=== PATIENT | female | born 1960 | race Caucasian/White ===

== ENCOUNTER 2022-04-23 13:37 | Emergency (ER) | payer OTHER, SELFPAY ==
--- NOTE | ~2022-04-23 | XR_ITS ---
EXAM: XR shoulder LT min 2V DATE: 04/23/2022 14:06 HISTORY: fall, landed on shoulder, hx fracture/hardware in 2018 . COMPARISON: None available. FINDINGS: Partially visualized uncomplicated appearing screw and plate fixation of the humeral shaft . Mild AC joint hypertrophy. Severe degenerative change in the glenohumeral joint, with large osteoph ytes and loose joint bodies. Acute fracture along the posterior lateral aspect of the left proximal h umerus, involving a portion of the greater tuberosity. A vertically oriented fracture through the hum eral head is present in the internal rotation view, of uncertain chronicity. IMPRESSION: Acute left proximal humeral fracture involving the greater tuberosity. More extensive fra cture involvement of the left humeral head may be acute, chronic, or acute on chronic, comparison to outside studies would be helpful. Reviewed, dictated and finalized at location [facility]. SCRIPTIONIST IMPRESSION: Acute left proximal humeral fracture involving the greater tuberosi ty. More extensive fracture involvement of the left humeral head may be acute, chronic, or acute on chronic, comparison to outside studies would be helpful.
[2022-04-23 13:40] VITALS: BP 159/97; PULSE 105; RESP 16; TEMP 36.8; O2SAT 95
--- NOTE | 2022-04-23 14:31 | ED.FALL ---
HPI - Fall General Chief Complaint: Fall Stated Complaint: fall-left shoulder pain Time Seen by Provider: 04/23/22 13:58 History of Present Illness HPI Narrative: Pt was walking her dog and tripped on the sidewalk and fell on left shoulder. Pt complains of pain in left shoulder. Pt has had surgery on left humerus and has ariane in place. Pt is on work assignment until 05/16 here and will not be going home before 05/16. Related Data Allergies Allergy/AdvReac Type Severity Reaction Status Date / Time No Known Allergies Allergy Verified 04/23/22 13:58 Review of Systems Review of Systems: All systems reviewed & are unremarkable except as noted in HPI and below Exam Const: General: healthy appearing Nutritional Appearance: well nourished Orientation/consciousness: patient oriented x3 Limitations: no limitations Chest: Chest palpation & inspection: normal inspection of the chest Resp: Effort & Inspection: normal respiratory effort Auscultation: clear to auscultation bilaterally Cardio: Rate: regular rate Rhythm: regular rhythm GI: Auscultation: normal bowel sounds Skin: General skin exam: normal color Rashes: no rashes Neuro: General: patient oriented x3, moves all extremities and no focal motor deficits Cranial nerves: Yes Nystagmus not present Speech: normal speech Extrem: General: normal to inspection Other: tender proximal humerus with limited ROM Psych: Mental Status: mental status grossly normal Affect: normal affect Attitude: cooperative Course Vital Signs Vital signs: Vital Signs Temperature 98.2 F 04/23/22 13:40 Pulse Rate 105 H 04/23/22 13:40 Respiratory Rate 16 04/23/22 13:40 Blood Pressure 159/97 H 04/23/22 13:40 Pulse Oximetry 95 04/23/22 13:40 Temperature 98.2 F 04/23/22 13:40 Pulse Rate 94 04/23/22 15:20 Respiratory Rate 14 04/23/22 15:20 Blood Pressure 144/94 H 04/23/22 15:20 Pulse Oximetry 97 04/23/22 15:20 MDM - Fall MDM Narrative Medical decision making narrative: Pt has proximal humerus fx above prior hardware. reviewed films with Dr Arreola, will see pt in follow up. Discharge Plan Discharge Clinical Impression: Fracture of proximal end of humerus Patient Disposition: Home, Self-Care Condition: Stable Instructions: Antibiotic Form, Proximal Humerus Fracture (ED) Prescriptions: New hydrocodone-acetaminophen 5-325 mg tablet 1 tablet PO Q6H PRN (Reason: pain) Qty: 10 0RF Follow-up/Referrals: Dequan Arreola MD [Physician] - PHYSICIAN NOT ON STAFF,NONSTAFF [Primary Care Provider] -
[2022-04-23 15:20] VITALS: BP 144/94; PULSE 94; RESP 14; O2SAT 97
== END 2022-04-23 15:21 | disposition home or self-care (01) ==
PROVIDERS: Emergency Provider Emergency Medicine
DX: S42.252A Displaced fracture of greater tuberosity of left humerus, initial encounter for closed fracture (principal); W01.0XXA Fall on same level from slipping, tripping and stumbling without subsequent striking against object, initial encounter; Y93.K1 Activity, walking an animal
CPT/HCPCS: 73030; 99284; A4565